=== PATIENT | female | born 1975 | race Caucasian/White ===

== ENCOUNTER 2020-06-23 13:28 | Emergency (ER) | payer OTHER ==
[~2020-06-23] VITALS: Ht 172.7 cm; Wt 77.1 kg
[2020-06-23] MEDS ORDERED: GABA300 (15:46)
[2020-06-23] MEDS ORDERED: ALPR.5 (15:47)
[2020-06-23] MEDS ORDERED: OMEP20ER (15:47)
[2020-06-23] MEDS ORDERED: BACL10 (15:47)
[2020-06-23] MEDS ORDERED: TRAZ50 (15:47)
[2020-06-23] MEDS ORDERED: MECL25 (15:47)
[2020-06-23] MEDS ORDERED: MORP15ER (15:47)
[2020-06-23] MEDS ORDERED: PRED5 PO (15:48)
[2020-06-23] MEDS ORDERED: CITA20 (15:48)
[2020-06-23] MEDS ORDERED: CYCL10 PO (16:46)
[2020-06-23] MEDS ORDERED: LIDO700A20 TOP (16:46)
[2020-06-23] MEDS ORDERED: KETO10 PO (16:46)
== END 2020-06-23 17:05 | disposition home or self-care (01) ==
LOC: ER 13:28
DX: S39.012A Strain of muscle, fascia and tendon of lower back, initial encounter (principal); M47.9 Spondylosis, unspecified; Z79.899 Other long term (current) drug therapy; Z88.2 Allergy status to sulfonamides; Z88.1 Allergy status to other antibiotic agents; X50.1XXA Overexertion from prolonged static or awkward postures, initial encounter
CPT/HCPCS: 72100; 96372; 99283-25; A9270; J1885